=== PATIENT | female | born 1970 | race Caucasian/White ===

== ENCOUNTER 2024-11-12 09:09 | Outpatient (REF) | payer MEDICAID, SELFPAY ==
--- OUTSIDE RECORDS SUMMARY | 2024-11-12 10:03 | XMS_ITS | Encounter Summary ---
Author Organization [employer] Address [address] [place] [address] Care Team Providers Care Drafter Engineering Name Role Phone Brittany Peng MD Primary Care Provider [phone] Encounter Details Date Type Department Care Team (Latest Contact Info) Description 11/12/2024 Travel Social History Tobacco Use Types Packs/Day Years Used Date Smoking Tobacco: Never Passive Smoke Exposure: Never Smokeless Tobacco: Never Alcohol Use Standard Drinks/Week Comments Yes 4 (1 standard drink = 0.6 oz pur e alcohol) Housing Stability Answer Date Recorded What is your housing situation today? I have jagruti wilson 11/05/[address] you li ve. Do you have problems with any of the following? None of the above 11/05/2024 Food Insecurity Answer Date Recorded Within the past 12 months, y ou worried that your food would run out before you got money to buy more: Never True 11/05/2024 Within the past 12 months,th e food you bought just didn't last and you didn't have enough money to get more: Never True Transportation Answer Date Recorded In the past 12 months, has l ack of transportation kept you from medical appts, meetings, work or from getting things needed for daily living? No 11/05/2024 Utilities Answer Date Recorded In the past 12 months, has t he electric, gas, oil or water company threatened to shut off services in your home? No 11/05/2024 Internet Access Answer Date Recorded Internet Access Q1 Yes 11/05/2024 Internet Access Q2 Not on file 11/05/2024 Comments No Sex and Gender Information Value Date Recorded Sex Assigned at Female 07/10/2022 10:17 AM EDT Legal Sex Female 10:17 AM EDT Gender Identity Female 07/10/2022 10:17 AM EDT Sexual Orientation Straight 07/10/2022 10 :17 AM EDT documented as of this encounter Plan of Treatment Not on file documented as of this encounter Visit Diagnoses Not on filedocumented in this encounter Care Teams Drafter Engineering Relationship Specialty Start Date End Date Brittany Peng MD [address] [place] [address] PCP - General Family Medicine 08/26/12 documented as of this encounter
--- OUTSIDE RECORDS SUMMARY | 2024-11-12 10:03 | XMS_ITS | Encounter Summary ---
Author Organization [employer] Address [address] [facility] 7t [place] [address] Care Team Providers Care Projection Camera Operator Name Role Phone Brittany Peng MD Primary Care Provider [phone] Reason for Visit * Reason Comments Pre-visit Planning SDOH negative,Tobacc o screening negative. Encounter Details Date Type Department Care Team ([facility] st Contact Info) Description 11/05/2024 Patient Outreach [facility] MED & PEDS [address] [place], [place] [phone] Brittany Peng MD [address] [place] [address] Pre-visit Planning (SDOH negative,Tobacco screening negative. ) Social History Tobacco Use Types Packs/Day Years [...] t he electric, gas, oil or water [email or web address] threatened to shut off services in your [...] AM EDT documented as of this encounter Progress Notes * Miriam Chung - 11/05/2024 3:11 PM EST CC Miriam Bey placed successful outbound call to patient for pre-visit planning. Patient name and confirmed. Patient confirms appt date and time, and has transportation arrangements. Biggest concern for appointment at this time is skin moles. Appropriate screenings completed in anticipation of appointment. documented in this encounter Plan of Treatment Not on file documented as of this encounter Visit Diagnoses Not on filedocumented in this encounter Care Teams Projection Camera Operator Relationship Specialty Start Date End Date Brittany Peng MD [address] [place] [id number] PCP - General Family Medicine 08/26/12 documented as of this encounter
--- OUTSIDE RECORDS SUMMARY | 2024-11-12 10:03 | XMS_ITS | Clinical Summary ---
Author Organization [employer] Address [address] [place] [address] Care Team Providers Care Senior Corporate Recruiter Name Role Phone Brittany Peng MD Primary Care Provider [phone] Allergies No known active allergies Medications multivitamin with minerals (Centrum) 9-200 mg-mcg tablet split tablet Take 1 tablet by mouth. 03/18/2014 Active acetaminophen (Tylenol 8 Hour) 650 MG ER tablet Take 1 tablet by mouth in the morning and 1 tablet at noon and 1 tablet in the evening. 06/10/2019 Active albuterol (ProAir HFA) 108 (90 Base) MCG/ACT inhaler Inhale every 6 (six) hours. 03/17/2016 Active hydrOXYzine HCl (Atarax) 25 MG tablet 07/31/2022 Active ibuprofen 600 MG tablet Take 1 tablet by mouth in the morning and 1 tablet at noon and 1 tablet in the evening. 01/14/2016 Active meclizine (Antivert) 25 MG tablet Take 1 tablet by mouth at bed time. 12/09/2021 Active levothyroxine (Synthroid, Levoxyl) 125 MCG tablet TAKE 1 TABLET BY MOUTH IN THE MORNING 90 tablet 1 02/18/2024 Active Active Problems Problem Noted Date Diagnosed Date Left ear pain 08/13/2023 Assessment & Plan (08/13/2023 2:17 PM EST): Patient that presented visit with complaints of L ear pain was recommended to keep using nasal spray, and follow up with PCP. Family history of colon canc er requiring screening colonoscopy 08/13/2023 Assessment & Plan (08/13/2023 2:18 PM EST): Patient will be referred to Gastroenterology. Family history of lymphoma 02/09/2023 Hearing loss 08/14/2022 Assessment & Plan (08/14/2022 10:23 AM EST): Patient with new onset L sided ear decrease hearing since 2 months ago, thought related to congestion but symptoms have persist. Needs ENT evaluation. Referral placed Anxiety 03/18/2014 Hypothyroidism 03/18/2014 Assessment & Plan (08/13/2023 2:18 PM EST): Patient will be sent for labs: TSH/FT4. Encounters Date Type Department Care Team Description 11/12/2024 8:30 AM EST Office Visit [facility] [address] [place] [address] Brittany Peng MD AK (actinic keratosis) (Primary Dx); Hypothyroidism, unspecified type; Anxiety; Encounter for screening for malignant neoplasm of colon 11/12/2024 Travel 11/11/2024 Telephone [facility] [address] [place] [address] Brittany Peng MD Chart Prep 11/05/2024 Patient Outreach [facility] [address] [place] [address] Brittany Peng MD Pre-visit Planning (SDOH negative,Tobacco screening negative. ) 11/03/2024 Telephone [facility] [address] [place] [address] Brittany Peng MD Nurse Triage from Last 3 Months Immunizations Name Administration Dates Next Due Influenza Injectable Quadriv alant Preservative Free IIV4 MDCK 06/20/2022 Influenza injectable quadriv alent IIV4 with preservative 05/25/2015 Influenza injectable quadrivalent preservative f ree 06/15/2021,08/24/2020 Influenza, IIV3, injectable 06/16/2013, 5 MMR 09/07/2015,08/10/2015 Moderna Covid-19 Vaccine 12+ 08/14/2021 Pfizer Covid-19 Vaccine 12+ 10/16/2020, 1 Td (adult), unspecified 02/25/2003 Tdap 07/29/2015 Family History Medical History Relation Name Comments Skin cancer Father Colon cancer Father's Brother Lymphoma Mother Relation Name Status Comments Father Father's Brother Mother Social History Tobacco Use Types Packs/Day Years [...] Orientation Straight 07/10/2022 10 :17 AM EDT Last Filed Vital Signs Vital Sign Reading Time Taken Comments Blood Pressure 128/92 11/12/2024 8:39 AM EST Pulse 84 11/12/2024 8:39 AM EST Temperature 37.1 ??C (98.7 ??F) 11/12/2024 8:39 AM ES T Respiratory Rate 20 11/12/2024 8:39 AM EST Oxygen Saturation 98% 11/12/2024 8:39 AM EST Inhaled Oxygen Concentration - - Weight 64.9 kg (143 lb) 11/12/2024 8:39 AM EST Height 164 cm (5' 4.57 ) 11/12/2024 8:39 AM EST Body Mass Index 24.12 11/12/2024 8:39 AM EST Plan of Treatment Health Maintenance Due Date Last Done Comments CT Colonography 1972 Colonoscopy 1972 Colorectal Cancer Screening 1972 Depression Screening 1972 FIT DNA/Cologuard 1972 FIT 1972 FOBT 1972 HIV Screening 1972 Sigmoidoscopy 1972 Family Planning (PISQ) 1987 Hepatitis C Screening 1990 Hepatitis B Vaccines (1 of 3 - 19+ 3-dose series) 1991 Pneumococcal Vaccine: 50+ Years (1 of 1 - PCV) 2022 Zoster Vaccines (1 of 2) 2022 Pap Smear 08/24/2023 08/24/2020 COVID-19 Vaccine ( season) 2024 08/14/2021, 10/16/2020, 09/25/2020 Mammogram 03/01/2025 03/01/2023 Influenza Vaccine (#1) 2025 , 06/15/2021, 08/24/2020, Additional history exists Postponed from 05/11/2024 (Patient Refused) DTaP/Tdap/Td Vaccines (2 - Td or Tdap) 07/29/2025 07/29/2015, 03/06/2013, 02/25/2003 Cervical Cancer Screening 08/24/2025 HPV/Cotest 08/24/2025 08/24/2020 SDOH Screening 11/05/2025 11/05/2024 Tobacco Screening 11/05/2025 11/05/2024 Alcohol/Substance Use Screening 11/12/2025 11/12/2024 RSV Patients and Patients Aged 60 years or older (1 - 1-dose 75+ series) 2047 HIB Vaccines Aged Out No longer eligi ble based on patient's age to complete this topic HPV Vaccines Aged Out No longer eligi ble based on patient's age to complete this topic Hepatitis A Vaccines Aged Out No long er eligible based on patient's age to complete this topic IPV Vaccines Aged Out No longer eligi ble based on patient's age to complete this topic Meningococcal Vaccine Aged Out No symone meenakshi eligible based on patient's age to complete this topic RSV under 20 months Aged Out No longe r eligible based on patient's age to complete this topic Rotavirus Vaccines Aged Out No longer eligible based on patient's age to complete this topic Procedures Procedure Name Priority Date/Time Associated Diagnosis Comments CRYOTHERAPY SKIN LESION Routine 11/12/2024 9:28 AM EST AK (actinic keratosis) HPV MRNA E6/E7 Routine 08/24/2020 10:31 AM EST THINPREP PAP Routine 08/24/2020 10:31 AM EST from Last 3 Months or Most Recently Relevant to Health Maintenance Results * Cryotherapy, skin lesion (11/12/2024 9:28 AM EST) Narrative Brittany Peng MD - 11/12/2024 9:28 AM EST Brittany Peng MD ? 11/12/2024 ??9:33 AM Cryotherapy, skin lesion Date/Time: 11/12/2024 9:28 AM Performed by: Brittany Peng MD Authorized by: Brittany Peng MD ?? Confirmed correct patient, procedure, site, and patient consented: Yes ?? Consent: ??Consent obtained: ??Verbal and written ??Consent given by: ??Patient ??Procedure risks and benefits discussed: Yes ?Patient questions answered: Yes ?Patient agrees, verbalizes understanding, and wants to proceed: Yes ?Educational handouts given: Yes ?Instructions and paperwork completed: Yes ?? [place] protocol: ??Procedure explained and questions answered to patient or proxy's satisfaction: yes ?Relevant documents present and verified: yes ?Test results available: yes ?Imaging studies available: yes ?Required blood products, implants, devices, and special equipment available: yes ?Site/side marked: yes ?Immediately prior to procedure, a time out was called: yes ?Patient identity confirmed: ??Verbally with patient Indications: ??Indications: ??AK Sedation: ??Sedation type: ??None Anesthesia: ??Anesthesia method: ??None Post-procedure details: ??Procedure completion: ??Tolerated Brittany Peng MD DERM PROCEDURE ORDERABLES Final Result * THINPREP PAP (08/24/2020 10:31 AM EST) Clinical Information: None given [facility] COMMENT SEE COMMENT [facility] Comment: EXPLANATORY NOTE: ? The Pap is a screening test for cervical cancer. It is ?? not a diagnostic test and is subject to false negative ?? and false positive results. It is most reliable when a ?? satisfactory sample, regularly obtained, is submitted ?? with relevant clinical findings and history, and when ?? the Pap result is evaluated along with historic and ?? current clinical information. ?? E Marketing Specialist : SEE COMMENT [facility] Comment: MAA, CT(ASCP) CT screening location: [address] ??[id number] Interpretation/R esult: Negative for intraepithelial lesion or malignancy. [facility] LMP: NONE [facility]IV[facility] Prev. BX: NONE [facility]IV[facility] Prev. PAP: NONE GIVEN [facility] SOURCE: None given [facility] Statement Of Adequacy: SEE COMMENT [facility] Comment: Satisfactory for evaluation. Endocervical/transformation zone component present. Age and/or menstrual status not provided 08/24/2020 10:3 1 AM EST Tea [facility] ORDERABLES Final Result [facility] [address] * HPV mRNA E6/E7 (08/24/2020 10:31 AM EST) HPV nRNA E6/E7 Not Detected Not Detected [facility] Comment: This test was performed using the APTIMA HPV Assay ([employer] This assay detects E6/E7 viral messenger RNA (mRNA) from 14 high-risk HPV types (16,18,31,33,35,39,45,51,52,56,58,59,66,68). ?? The analytical performance characteristics of this assay have been determined by [employer]. The modifications have not been cleared or approved by the FDA. This assay has been validated pursuant to the CLIA regulations and is used for clinical purposes. 08/24/2020 10:3 1 AM EST us Tea [place] [facility] BLOOD ORDERABLES Rosette mcrae Result [facility] Critical access hospital [address] from Last 3 Months or Most Recently Relevant to Health Maintenance Insurance [facility] Care Teams Senior Corporate Recruiter Relationship Specialty Start Date End Date Brittany Peng MD [address] [place] [id number] PCP - General Family Medicine 08/26/12
--- OUTSIDE RECORDS SUMMARY | 2024-11-12 10:03 | XMS_ITS | Encounter Summary ---
Author Organization [employer] Address [address] [facility] 7t [place] [address] Care Team Providers Care Hide Buffer Name Role Phone Brittany Peng MD Primary Care Provider [phone] Reason for Referral * (Routine) - Pending Review Specialty Diagnoses / Procedures Referred By Susana lópez Referred To Contact Diagnoses AK (actinic keratosis) Procedures Cryotherapy, skin lesion Brittany Peng MD [address] [place] [address] Phone: tel: fax: Referral ID Status Reason Start Date Expiration Date V isits Requested Visits Authorized [id number] Pending Review 11/12/2024 11/12/2025 1 1 Encounter Details Date Type Department Care Team (Late st Contact Info) Description 11/12/2024 8:30 AM EST Office Visit [facility] MED & PEDS [address] [place] [address] Brittany Peng MD [address] [place], [place] [phone] AK (actinic keratosis) (Primary Dx); Hypothyroidism, unspecified type; Anxiety; Encounter for screening for malignant neoplasm of colon Social History Tobacco Use Types Packs/Day Years Used Date Smoking Tobacco: Never Passive Smoke Exposure: Never Smokeless Tobacco: Never Alcohol Use Standard Drinks/Week Comments Yes 4 (1 standard drink = 0.6 oz pur e alcohol) Housing Stability Answer Date Recorded What is your housing situation today? I have jagrutinarinder wilson 11/05/[address] you [...] AM EDT documented as of this encounter Last Filed Vital Signs Vital Sign Reading [...] Mass Index 24.12 11/12/2024 8:39 AM EST documented in this encounter Progress Notes * Brittany Peng MD - 11/12/2024 8:30 AM ESTAssociated Order(s): Cryotherapy, skin lesion Post-Procedure Diagnose(s): AK (actinic keratosis) Subjective Patient ID: Whit Copeland is a 54 y.o. female who presents for No chief complaint on file.. Is here with increasing number of rough patches on her skin Review of Systems Constitutional: Negative. Respiratory: Negative. Negative for shortness of breath. Cardiovascular: Negative for chest pain and palpitations. Gastrointestinal: Negative. Genitourinary: Negative. Musculoskeletal: Negative for neck pain. Neurological: Negative for headaches. Objective Physical Exam Constitutional: Appearance: Normal appearance. Cardiovascular: Rate and Rhythm: Normal rate and regular rhythm. Pulses: Normal pulses. Heart sounds: Normal heart sounds. Pulmonary: Effort: Pulmonary effort is normal. Abdominal: General: Abdomen is flat. Skin: Comments: Multiple Aks Neurological: Mental Status: She is alert. Patient ID: Whit Copeland is a 54 y.o. female. Cryotherapy, skin lesion Date/Time: 11/12/2024 9:28 AM Performed by: Brittany Peng MD Authorized by: Brittany Peng MD Confirmed correct patient, procedure, site, and patient consented: Yes Consent: Consent obtained: Verbal and written Consent given by: Patient Procedure risks and benefits discussed: Yes Patient questions answered: Yes Patient agrees, verbalizes understanding, and wants to proceed: Yes Educational handouts given: Yes Instructions and paperwork completed: Yes [place] protocol: Procedure explained and questions answered to patient or proxy's satisfaction: yes Relevant documents present and verified: yes Test results available: yes Imaging studies available: yes Required blood products, implants, devices, and special equipment available: yes Site/side marked: yes Immediately prior to procedure, a time out was called: yes Patient identity confirmed: Verbally with patient Indications: Indications: AK Sedation: Sedation type: None Anesthesia: Anesthesia method: None Post-procedure details: Procedure completion: Tolerated Assessment/Plan Diagnoses and all orders for this visit: AK (actinic keratosis) Comments: Lesion treated with Liquid nitrogen 1) Lesion 1 .Right cheek - 10secs 2) Lesion 2 .Left upper arm - 15sec Hypothyroidism, unspecified type Comments: Stable Labs ordered today Orders: - Basic Metabolic Panel; Future - Lipid Panel, Standard; Future - TSH with Reflex to Free T4; Future - Hepatic Function Panel; Future Anxiety Comments: Stable Encounter for screening for malignant neoplasm of colon Other orders - Cryotherapy, skin lesion documented in this encounter Plan of Treatment Scheduled Orders Name Type Priority Associated Diagnoses Orde r Schedule Basic Metabolic Panel Lab Routine Hypothyroidism, unspecified type Expected: 11/12/2024 (Approximate), Expires: 11/12/2025 Lipid Panel, Standard Lab Routine Hypothyroidism, unspecified type Expected: 11/12/2024 (Approximate), Expires: 11/12/2025 TSH with Reflex to Free T4 Lab Routine Hypothyroidism, unspecified type Expected: 11/12/2024 (Approximate), Expires: 11/12/2025 Hepatic Function Panel Lab Routine Hypothyroidism, unspecified type Expected: 11/12/2024 (Approximate), Expires: 11/12/2025 Cryotherapy, skin lesion Dermatology Routine AK (actinic keratosis) Expected: 11/12/2024 (Approximate), Expires: 11/12/2025 documented as of this encounter Procedures Procedure Name Priority Date/Time Associated Diagnosis Comments CRYOTHERAPY SKIN LESION Routine 11/12/2024 9:28 AM EST AK (actinic keratosis) documented in this encounter Results * Cryotherapy, skin lesion (11/12/2024 9:28 [...] Yes ?Instructions and paperwork completed: Yes ?? [place] protocol: ??Procedure explained and questions answered to [...] Peng MD DERM PROCEDURE ORDERABLES Final Result documented in this encounter Visit Diagnoses Diagnosis AK (actinic keratosis)- Primary Actinic keratosis Hypothyroidism, unspecified type Anxiety Anxiety state, unspecified Encounter for screening for malignant neoplasm of colon documented in this encounter Care Teams Hide Buffer Relationship Specialty Start Date End Date Brittany Peng MD [address] [place] [id number] PCP - General Family Medicine 08/26/12 documented as of this encounter
--- OUTSIDE RECORDS SUMMARY | 2024-11-12 10:03 | XMS_ITS | Encounter Summary ---
Author Organization [employer] Address [address] [facility] 7t [place] [address] Care Team Providers Care Preflight Inspector Name Role Phone Brittany Peng MD Primary Care Provider [phone] Reason for Visit * Reason Onset Date Comments Nurse Triage 11/03/2024 Encounter Details Date Type Department Care Team ([facility] st Contact Info) Description 11/03/2024 Telephone [facility] MED & PEDS [address] [place], [place] [phone] Brittany Peng MD [address] [place] [address] Nurse Triage Social History Tobacco Use Types Packs/Day Years Used Date Smoking Tobacco: Never Passive Smoke Exposure: Never Smokeless Tobacco: Never Alcohol Use Standard Drinks/Week Comments Yes 4 (1 standard drink = 0.6 oz pur e alcohol) Comments No Sex and Gender Information Value Date Recorded Sex Assigned at Female 07/10/2022 10:17 AM EDT Legal Sex Female 10:17 AM EDT Gender Identity Female 07/10/2022 10:17 AM EDT Sexual Orientation Straight 07/10/2022 10 :17 AM EDT documented as of this encounter Miscellaneous Notes * Telephone Encounter - Christy Reed RN - 11/03/2024 11:28 AM EST Call returned to Whit Copeland to triage below. Reports having skin changes x 1 year. Reports having new moles that are oval in shape on back side. Occasional itching. No open skin or bleeding. Pt advised of disposition, not available this week. Agrees to OV with PCP next week. Reviewed home care advise, ER precautions and reasons to call back. Protocol Used: Skin Lesion - Moles or Growths (Adult) Protocol-Based Disposition: See in Office or Video Visit within 2 Weeks Future Appointments Date Time Provider Department Center 11/12/2024 8:30 AM Brittany Peng MD [facility] Insurance verified as active per Real Time Eligibility in [facility]. Video visit offer not recorded Positive Triage Question: * Skin growth or mole and border is irregular or blurry * All higher-acuity triage questions were negative * Telephone Encounter - Priyanka Lopez - 11/03/2024 11:23 AM EST Symptom: Skin Spot Outcome: Schedule an appointment to be seen within 3 days Reason: Caller denied all higher acuity questions The caller accepted this outcome. documented in this encounter Plan of Treatment Not on file documented as of this encounter Visit Diagnoses Not on filedocumented in this encounter Care Teams Preflight Inspector Relationship Specialty Start Date End Date Brittany Peng MD [address] [place] [address] PCP - General Family Medicine 08/26/12 documented as of this encounter
--- OUTSIDE RECORDS SUMMARY | 2024-11-12 10:03 | XMS_ITS | Encounter Summary ---
Author Organization [employer] Address [address] [facility] [address] [place] [address] Care Team Providers Care Clinical Rehab Specialist Name Role Phone Brittany Peng MD Primary Care Provider [phone] Reason for Visit * Reason Onset Date Comments Chart Prep 11/11/2024 Encounter Details Date Type Department Care Team ([facility] Contact Info) Description 11/11/[address] [facility] MED [facility] PEDS [address] [place], [place] [phone] Brittany Peng MD [address] [place], [place] [phone] Chart Prep Social History Tobacco Use Types Packs/Day Years [...] encounter Miscellaneous Notes * Telephone Encounter - Di Parker MA - 11/11/2024 11:29 AM EST Chart Prep Labs: not done Images: not done Vaccines due: yes Referrals: complete Screenings: colonoscopy Overdue care gaps: PHQ-9 documented in this encounter Plan of Treatment Not on file documented as of this encounter Visit Diagnoses Not on filedocumented in this encounter Care Teams Clinical Rehab Specialist Relationship Specialty Start Date End Date Brittany Peng MD [address] [place] [address] PCP - General Family Medicine 08/26/12 documented as of this encounter
[2024-11-12 14:35] LABS: Alanine Aminotransferase 22 U/L (0-31); Albumin Level 4.4 g/dL (3.5-5.0); Alkaline Phosphatase 64 U/L (39-117); Anion Gap 11 (12-20); Aspartate Amino Transferase 29 U/L (5-31); Bilirubin Direct 0.2 mg/dL (0.0-0.5); Bilirubin Total 0.5 mg/dL (0.0-1.0); Blood Urea Nitrogen 8 mg/dL (9-16); Calcium 9.5 mg/dL (8.4-10.2); Carbon Dioxide 28 mmol/L (22-29); Chloride 105 mmol/L (96-108); Cholesterol 287 mg/dL (<200); Estimated Glomerular Filt Rate > 60; Glucose Random 96 mg/dL (60-115); HDL Cholesterol 49 mg/dL (>40); LDL Cholesterol Calculated 163 mg/dL (<100); Potassium 3.9 mmol/L (3.3-5.1); Sodium 140 mmol/L (135-145); Total Protein 7.5 g/dL (6.5-8.0); Triglycerides 377 mg/dL (<150)
[2024-11-12 15:08] LABS: TSH reflex Free T4 8.98 uIU/mL (0.32-4.0)
[2024-11-12 16:03] LABS: Free T4 (Free Thyroxine) 0.89 ng/dL (0.71-1.85)
== END 2024-11-12 09:10 | disposition home or self-care (01) ==
LOC: HO.CHCLDS 09:09
PROVIDERS: Visit Provider Student in an Organized Health Care Education/Training Program
DX: E03.9 Hypothyroidism, unspecified (principal)
CPT/HCPCS: 36415; 80048; 80061; 80076; 84439; 84443